=== PATIENT | female | born 1955 | race Caucasian/White ===

== ENCOUNTER → 2020-07-17 11:54 | Outpatient (CLI) | payer OTHER, BC, SELFPAY ==
--- NOTE | ~2020-07-17 | MM_ITS ---
EXAMINATION: MM screening [facility] BI [facility] HISTORY: Screening mammogram TECHNIQUE: Craniocaudal and mediolateral oblique 3-D tomosynthesis images were obtained and synthetic 2-D images were generated. CAD analysis was submitted and interpreted. COMPARISON: 03/31/2019, 11/03/2016, 11/20/2010 BREAST PARENCHYMAL COMPOSITION: There are scattered areas of fibroglandular density. FINDINGS: There is no evidence of suspicious mass, calcification, or architectural distortion to sugg est malignancy in either breast. There has been no suspicious interval change. IMPRESSION: 1. No mammographic evidence of malignancy. 2. Recommend routine screening mammography in one year. BI-RADS Category 1: Negative Reviewed, dictated and finalized at location A. 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
== END ==
PROVIDERS: PCP Family Medicine; Visit Provider Family Medicine
DX: Z12.31 Encounter for screening mammogram for malignant neoplasm of breast (principal)
CPT/HCPCS: 77063; 77067

== ENCOUNTER → 2021-12-17 12:04 | Outpatient (CLI) | payer MEDICARE, OTHER, SELFPAY ==
--- NOTE | ~2021-12-17 | DEXA_ITS ---
Bone Density Report Name: EDWARDO BAY Age: 66 Sex: Female Ethnicity: White Date of : 1955 Indication: osteopenia; prior fracture; postmenopausal Referring Provider: Davy Walters Study: Bone densitometry was performed. Exam Date: December 17, 2021 Accession number: [id number] Bone Density: Region BMD T-score Z-score Classification AP Spine (L1-L4) 0.913 -1.2 0.6 Osteopenia Femoral Neck (Left) 0.676 -1.6 0.0 Osteopenia Total Hip (Left) 0.812 -1.1 0.2 Osteopenia Femoral Neck (Right) 0.685 -1.5 0.1 Osteopenia Total Hip (Right) 0.771 -1.4 -0.1 Osteopenia Total Hip Mean 0.792 -1.3 0.1 Osteopenia World Health Organization criteria for BMD impression classify patients as: Normal (T-score at or above -1.0), Osteopenia (T-score between -1.0 and -2.5), or Osteoporosis (T-score at or below -2.5). 10-year Fracture Risk(1): Major Osteoporotic Fracture 14% Hip Fracture 1.6% Reported Risk Factors: [place] (), Neck BMD=0.676, BMI=31.0, previous fracture (1) FRAX(R) Version 3.08. Fracture probability calculated for an untreated patient. Fracture probability may be lower if the patient has received treatment. Previous Exams: Region Exam Age BMD T-score BMD Change BMD Change Date g/cm2 vs Baseline vs Previous AP Spine(L1-L4) 12/17/2021 66 0.913 -1.2 -0.031 -0.026 03/31/2019 63 0.939 -1.0 -0.005 -0.005 11/03/2016 61 0.944 -0.9 Total Hip(Left) 12/17/2021 66 0.812 -1.1 -0.021 -0.024 03/31/2019 63 0.836 -0.9 0.003 0.003 11/03/2016 61 0.833 -0.9 Total Hip(Right) 12/17/2021 66 0.771 -1.4 -0.027 -0.001 03/31/2019 63 0.772 -1.4 -0.025 -0.025 11/03/2016 61 0.798 -1.2 *Denotes significance at 95% confidence level, LSC for AP Spine = 0.022 g/cm2, LSC for Total Hip = 0.027 g/cm2 Clinical Information Provided by Patient: Has had a low trauma fracture Has used the following medications: Vitamin D, Calcium, MTV Patient maximum height was 65.0 Menopause Age: 52 Drinks caffeinated beverages Onset of menses at age 12 Number of children 3 Impression: The patient has low bone mass, based on the Left Femoral Neck T-score. The patient has an estimated ten-year risk of hip fracture of 1.6% and an estimated ten-year risk of major fracture of 14%, based on the WHO FRAX algorithm. The patient has risk
--- NOTE | ~2021-12-17 | MM_ITS ---
EXAMINATION: MM screening [facility] HISTORY: Screening mammogram TECHNIQUE: Craniocaudal and mediolateral oblique 3-D tomosynthesis images were obtained and synthetic 2-D images were generated. Bilateral rotated lateral CC views. CAD analysis was submitted and interp reted. COMPARISON: 07/13/2020, 03/31/2019, 11/03/2016 bilateral screening mammogram examinations BREAST PARENCHYMAL COMPOSITION: There are scattered areas of fibroglandular density. FINDINGS: There is no evidence of suspicious mass, calcification, or architectural distortion to sugg est malignancy in either breast. There has been no suspicious interval change. IMPRESSION: 1. No mammographic evidence of malignancy. 2. Recommend routine screening mammography in one year. BI-RADS Category 1: Negative Reviewed, dictated and finalized at location A.
== END ==
PROVIDERS: PCP Family Medicine; Visit Provider Family Medicine
DX: Z12.31 Encounter for screening mammogram for malignant neoplasm of breast (principal); Z78.0 Asymptomatic menopausal state; M85.88 Other specified disorders of bone density and structure, other site; M85.852 Other specified disorders of bone density and structure, left thigh; M85.851 Other specified disorders of bone density and structure, right thigh
CPT/HCPCS: 77063; 77067; 77080

== ENCOUNTER 2024-03-22 11:29 | Outpatient (CLI) | payer MEDICARE, SELFPAY ==
--- NOTE | ~2024-03-22 | MM_ITS ---
EXAMINATION: MM screening [facility] BI w isabelle HISTORY: Screening mammogram TECHNIQUE: Craniocaudal and mediolateral oblique 3-D tomosynthesis images were obtained and synthetic 2-D images were generated. CAD analysis was submitted and interpreted. COMPARISON: 12/17/2021, 07/17/2020, 03/31/2019 BREAST PARENCHYMAL COMPOSITION:Not Dense. There are scattered areas of fibroglandular density. FINDINGS: No suspicious mass, calcification, or architectural distortion are identified in either zeus ast to suggest malignancy. There has been no suspicious interval change. IMPRESSION: No mammographic evidence of malignancy. Recommend routine screening mammography in one year. BI-RADS Category 1: Negative Reviewed, dictated and finalized at location .
== END 2024-03-22 11:30 | disposition home or self-care (01) ==
LOC: MICIMG 11:30
PROVIDERS: PCP Family Medicine; Visit Provider Family Medicine
DX: Z12.31 Encounter for screening mammogram for malignant neoplasm of breast (principal)
CPT/HCPCS: 77063; 77067

== ENCOUNTER 2024-06-07 14:37 | Emergency (ER) | payer MEDICARE, SELFPAY ==
--- NOTE | ~2024-06-07 | XR_ITS ---
EXAMINATION: XR hand LT min 3V, XR wrist LT min 3V DATE: 06/07/2024 15:02 INDICATION: Distal left radial pain post fall TECHNIQUE: 1. Posteroanterior, ulnar deviation, oblique, and lateral views of the left wrist were obtained. 2. Dorsal palmar, oblique and lateral views of the left hand were obtained. COMPARISON: None. FINDINGS: Diffuse osteopenia. Dorsally impacted comminuted intra-articular fracture of the distal left radius w ith 22 degree dorsal tilt of the distal articular surface. There is an additional nondisplaced fractu re extending across the base of the ulnar styloid process. No fracture in the left hand. Advanced ost eoarthritis at the first carpometacarpal joint. Additional mild polyarticular osteoarthritis at the l eft wrist, midcarpal, triscaphe and multiple interphalangeal joints. IMPRESSION: 1. Comminuted dorsally impacted intra-articular fracture of the distal left radius. 2. Nondisplaced ulnar styloid avulsion fracture. 2. Polyarticular osteoarthritis at the left hand and wrist, advanced at the first carpometacarpal bettie nt and otherwise mild. Reviewed, dictated and finalized at location B. [facility] IMPRESSION: 1. Comminuted dorsally impacted intra-articular fracture of the distal left rad ius. 2. Nondisplaced ulnar styloid avulsion fracture. 2. Polyarticular osteoarthritis at the left hand and wrist, advanced at the [facility] st carpometacarpal joint and otherwise mild.
--- NOTE | 2024-06-07 14:49 | ED.UPPEXIN ---
HPI - Extremity Injury (Upper) General Chief Complaint: Extremity Injury, Upper <Naomi Marsh PA-C - Last Filed: 06/07/24 14:51> Stated Complaint: left wrist injury <Naomi Marsh PA-C - Last Filed: 06/07/24 14:51> Time Seen by Provider: 06/07/24 14:56 <Naomi Masrh PA-C - Last Filed: 06/07/24 14:51> Focused HPI: 68-year-old female presents emergency department for pain to the left wrist after a mechanical injury. Patient states she tripped over a scooter on the ground and landed on her left side with her arm twisted under her. She did not hit her head or lose consciousness. She denies other injuries including neck pain, back pain, lower extremity injury. She is reporting pain and swelling to the left wrist. Reports a remote history of fracture to her left wrist as well. She took Aleve earlier this morning for an unrelated reason, otherwise has not taken anything for pain. GENERAL: Well-appearing, well-nourished, and in no acute distress. HEAD: Normocephalic, atraumatic. CHEST: Clear to auscultation. ?No respiratory distress. EXT: Tenderness and edema to the distal radius, no significant tenderness to the distal ulna, limited range of motion secondary to pain, no tenderness remainder of extremity. Cap refills into. Sensation intact. Radial, median and ulnar nerves are intact. Radial pulse 2 +. HEART: Regular rate and rhythm.? NEURO: ?Alert and oriented x3. Patient screened in triage and initial orders placed.? ?Additional care and disposition to be based upon?diagnostic testing and treatment. <Naomi Marsh PA-C - Last Filed: 06/07/24 14:51> Source: patient and family <Dillan Gallagher MD - Last Filed: 06/07/24 16:00> Mode of arrival: ambulatory <Dillan Gallagher MD - Last Filed: 06/07/24 16:00> Limitations: no limitations <Dillan Gallagher MD - Last Filed: 06/07/24 16:00> History of Present Illness HPI narrative: 68-year-old with a history of hypertension, diabetes here with the complaints of left wrist pain patient states that she tripped on her daughter's scooter and fell on outstretched hand. She denies any head and neck injuries. <Dillan Gallagher MD - Last Filed: 06/07/24 16:00> complaint: injury to: left <Dillan Gallagher MD - Last Filed: 06/07/24 16:00> Other Extremity Injury: Left: wrist <Dillan Gallagher MD - Last Filed: 06/07/24 16:00> Other injuries: none <Dillan Gallagher MD - Last Filed: 06/07/24 16:00> Handedness: right <Dillan Gallagher MD - Last Filed: 06/07/24 16:00> Place: home <Dillan Gallagher MD - Last Filed: 06/07/24 16:00> Severity: moderate <Dillan Gallagher MD - Last Filed: 06/07/24 16:00> Relieving factors: none <Dillan Gallagher MD - Last Filed: 06/07/24 16:00> Exacerbating factors: movement of extremity <Dilaln Gallagher MD - Last Filed: 06/07/24 16:00> Context: fall <Dillan Gallagher MD - Last Filed: 06/07/24 16:00> Associated symptoms: denies other symptoms <Dilaln Gallagher MD - Last Filed: 06/07/24 16:00> Treatments prior to arrival: cold therapy <Dillan Gallagher MD - Last Filed: 06/07/24 16:00> Related Data Home Medications: Home Medications ?Medication ?Instructions ?Recorded ?Confirmed ?Last Taken ?Type aspirin 81 mg tablet,delayed 81 mg PO DAILY 06/06/19 04/03/24 Unknown History release cetirizine 10 mg tablet (Zyrtec) 10 mg PO DAILY 06/06/19 04/03/24 Unknown History cholecalciferol (vitamin D3) 25 1,000 unit PO DAILY 06/06/19 04/03/24 Unknown History mcg (1,000 unit) tablet multivitamin-ferrous 1 tablet PO DAILY 06/06/19 04/03/24 Unknown History fumarate-folic acid 18 mg-400 mcg tablet (Centrum Complete) <Naomi Marsh PA-C - Last Filed: 06/07/24 14:51> Allergies/Adverse Reactions: Allergies Allergy/AdvReac Type Severity Reaction Status Date / Time No Known Allergies Allergy Verified 06/07/24 14:38 <Naomi Marsh PA-C - Last Filed: 06/07/24 14:51> Review of Systems Review of Systems: All systems reviewed & are unremarkable except as noted in HPI and below <Dillan Gallagher MD - Last Filed: 06/07/24 16:00> Constitutional: Constitutional: Reports no additional constitutional complaints <Dillan Gallagher MD - Last Filed: 06/07/24 16:00> Eyes: Eyes: Reports no additional eye complaints <Dillan Gallagher MD - Last Filed: 06/07/24 16:00> ENT: Reports system reviewed and no additional complaints, except as documented <Dillan Gallagher MD - Last Filed: 06/07/24 16:00> Cardiovascular: Cardiovascular: Reports no additional cardiovascular complaints <Dillan Gallagher MD - Last Filed: 06/07/24 16:00> Respiratory: Respiratory: Reports no additional respiratory complaints <Dillan Gallagher MD - Last Filed: 06/07/24 16:00> Gastrointestinal: Gastrointestinal: Reports no additional gastrointestinal complaints <Dillan Gallagher MD - Last Filed: 06/07/24 16:00> Musculoskeletal: Musculoskeletal: Reports as per HPI <Dillan Gallagher MD - Last Filed: 06/07/24 16:00> Neurologic: Reports system reviewed and no additional complaints, except as documented <Dillan Gallagher MD - Last Filed: 06/07/24 16:00> Endocrine: Endocrine: Reports no additional endocrine complaints <Dillan Gallagher MD - Last Filed: 06/07/24 16:00> PMFSH Surgical History Surgical History: Surgical History Hx of parathyroidectomy <Naomi Marsh PA-C - Last Filed: 06/07/24 14:51> Family History Family History: Family History Mother Family history of osteoarthritis <Naomi Marsh PA-C - Last Filed: 06/07/24 14:51> Social History Social History: Social History Smoking status: Never smoker Second hand tobacco smoke exposure: No Alcohol intake: never Substance use: never Substance use type: does not use Living arrangements: with family Occupation/Education: retired Gender identity (if verbalized by the patient): Female Sexual Orientation (if Verbalized by the Patient): Straight or Heterosexual <Naomi Marsh PA-C - Last Filed: 06/07/24 14:51> Exam Narrative: GENERAL: Well-appearing, well-nourished, and in no acute distress. HEAD: Normocephalic, atraumatic. EYES: PERRLA and EOMI. ENT: Nares clear, no rhinorrhea or epistaxis. Mucous membranes moist. NECK: Supple. CHEST: Clear to auscultation. No respiratory distress. HEART: Regular rate and rhythm. No murmur heard. Normal peripheral pulses. EXTREMITIES: Normal range of motion. Examination of left wrist shows mild soft tissue swelling good radial pulse. SKIN: Warm, dry, no rash. NEURO: No focal deficits. Alert and oriented x3. PSYCH: Normal mood and affect. <Dillan Gallagher MD - Last Filed: 06/07/24 16:00> Course Course Emergency Course: Notified patient about an x-ray findings. Recommended her to keep her arm elevated use sling all the time, advised to follow-up with orthopedic doctor. Take pain medication as prescribed the <Dillan Gallagher MD - Last Filed: 06/07/24 16:00> Vital Signs Vital signs: Vital Signs Temperature 36.6 C 06/07/24 14:51 Pulse Rate 95 06/07/24 14:51 Respiratory Rate 16 06/07/24 14:51 Blood Pressure 159/64 H 06/07/24 14:51 Pulse Oximetry 100 06/07/24 14:51 Oxygen Delivery Room Air 06/07/24 14:51 Temperature 36.6 C 06/07/24 14:51 Pulse Rate 95 06/07/24 14:51 Respiratory Rate 16 06/07/24 14:51 Blood Pressure 159/64 H 06/07/24 14:51 Pulse Oximetry 100 06/07/24 14:51 Oxygen Delivery Room Air 06/07/24 14:51 <Naomi Marsh PA-C - Last Filed: 06/07/24 14:51> Vital Signs Temperature 36.6 C 06/07/24 14:51 Pulse Rate 95 06/07/24 14:51 Respiratory Rate 16 06/07/24 14:51 Blood Pressure 159/64 H 06/07/24 14:51 Pulse Oximetry 100 06/07/24 14:51 Oxygen Delivery Room Air 06/07/24 14:51 Temperature 36.6 C 06/07/24 14:51 Pulse Rate 95 06/07/24 14:51 Respiratory Rate 16 06/07/24 14:51 Blood Pressure 159/64 H 06/07/24 14:51 Pulse Oximetry 100 06/07/24 14:51 Oxygen Delivery Room Air 06/07/24 14:51 <Dillan Gallagher MD - Last Filed: 06/07/24 16:00> MDM - Extremity Injury (Upper) Differential Diagnosis Differential diagnosis: Likely sprain and strain of wrist and fracture of wrist <Dillan Gallagher MD - Last Filed: 06/07/24 16:00> Imaging Data Radiologist's impression: ITS Impressions Hand X-Ray 06/07/24 15:03 IMPRESSION: 1. Comminuted dorsally impacted intra-articular fracture of the distal left radius. 2. Nondisplaced ulnar styloid avulsion fracture. 2. Polyarticular osteoarthritis at the left hand and wrist, advanced at the first carpometacarpal joint and otherwise mild. Wrist X-Ray 06/07/24 15:03 IMPRESSION: 1. Comminuted dorsally impacted intra-articular fracture of the distal left radius. 2. Nondisplaced ulnar styloid avulsion fracture. 2. Polyarticular osteoarthritis at the left hand and wrist, advanced at the first carpometacarpal joint and otherwise mild. <Dillan Gallagher MD - Last Filed: 06/07/24 16:00> Discharge Plan Discharge Clinical Impression: Left wrist fracture Qualifiers: Encounter type: initial encounter Fracture type: closed Qualified Code(s): S62.102A - Fracture of unspecified carpal bone, left wrist, initial encounter for closed fracture <Naomi Marsh PA-C - Last Filed: 06/07/24 14:51> Patient Disposition: Home, Self-Care <ATIF Frankel Last Filed: 06/07/24 14:51> Condition: Stable <ATIF Frankel Last Filed: 06/07/24 14:51> Instructions: Wrist Fracture in Adults (ED) <ATIF Frankel Last Filed: 06/07/24 14:51> Additional Instructions: Take pain medication as prescribed. Follow-up with orthopedic doctor number given below. Keep the arm elevated <ATIF Frankel Last Filed: 06/07/24 14:51> Patient Language: Barbadian <ATIF Frankel Last Filed: 06/07/24 14:51> Prescriptions: New hydrocodone-acetaminophen 5-325 mg tablet 1 tablet PO Q6H PRN (Reason: pain) Qty: 20 0RF No Action aspirin 81 mg tablet,delayed release (DR/EC) 81 mg PO DAILY Centrum Complete 18-400 mg-mcg tablet 1 tablet PO DAILY cetirizine [Zyrtec] 10 mg tablet 10 mg PO DAILY cholecalciferol (vitamin D3) 25 mcg (1,000 unit) tablet 1,000 unit PO DAILY scopolamine base [Transderm-Scop] 1 mg over 3 days patch 3 day 1 patch transdermal Q3D PRN (Reason: motion sickness) Qty: 4 0RF (DME) lancets [OneTouch Delica Lancets] 33 gauge misc See Rx Instructions .ROUTE .MEDSUPPLY Qty: 100 3RF Rx Instructions: test daily metformin 500 mg tablet extended release 24 hr See Rx Instructions .ROUTE .COMPLEX Qty: 360 2RF Dose Instruction: TAKE 4 TABLETS EVERY EVENING Rx Instructions: TAKE 4 TABLETS EVERY EVENING amlodipine 5 mg tablet See Rx Instructions .ROUTE .COMPLEX Qty: 90 2RF Dose Instruction: TAKE 1 TABLET DAILY Rx Instructions: TAKE 1 TABLET DAILY hydrochlorothiazide 25 mg tablet See Rx Instructions .ROUTE .COMPLEX Qty: 90 2RF Dose Instruction: TAKE 1 TABLET DAILY Rx Instructions: TAKE 1 TABLET DAILY metoprolol succinate 25 mg tablet extended release 24 hr See Rx Instructions .ROUTE .COMPLEX Qty: 90 2RF Dose Instruction: TAKE 1 TABLET DAILY Rx Instructions: TAKE 1 TABLET DAILY simvastatin 20 mg tablet See Rx Instructions .ROUTE .COMPLEX Qty: 90 2RF Dose Instruction: TAKE 1 TABLET DAILY Rx Instructions: TAKE 1 TABLET DAILY (DME) OneTouch Ultra Test Strip See Rx Instructions .Route Qty: 100 3RF Rx Instructions: test qam fasting ramipril 10 mg capsule See Rx Instructions .ROUTE .COMPLEX Qty: 90 2RF Dose Instruction: TAKE 1 CAPSULE DAILY Rx Instructions: TAKE 1 CAPSULE DAILY <Naomi Marsh PA-C - Last Filed: 06/07/24 14:51> Follow-up/Referrals: Davy Walters MD [Primary Care Provider] - Tyrell Quiros MD [Physician] - <Naomi Marsh PA-C - Last Filed: 06/07/24 14:51> Time of Disposition: 15:59 <Naomi Marsh PA-C - Last Filed: 06/07/24 14:51> 15:59 <Dillan Gallagher MD - Last Filed: 06/07/24 16:00>
[2024-06-07 14:51] VITALS: BP 159/64; PULSE 95; RESP 16; TEMP 36.6; O2SAT 100
[2024-06-07] MEDS: HYDROcodone/acetaminophen (*CRX) 5-325 MG TABLET 1 TAB PO (15:41)
== END 2024-06-07 16:20 | disposition home or self-care (01) ==
PROVIDERS: Emergency Provider Family Medicine; PCP Family Medicine
DX: S52.572A Other intraarticular fracture of lower end of left radius, initial encounter for closed fracture (principal); S52.615A Nondisplaced fracture of left ulna styloid process, initial encounter for closed fracture; W01.0XXA Fall on same level from slipping, tripping and stumbling without subsequent striking against object, initial encounter
CPT/HCPCS: 29125; 73110; 73130; 99284; A4565; A9270

== ENCOUNTER 2024-09-15 14:15 | Outpatient (CLI) | payer MEDICARE, SELFPAY ==
--- NOTE | ~2024-09-15 | DEXA_ITS ---
Bone Density Report Name: EDWARDO BAY Age: 69 Sex: Female Ethnicity: White Date of : 1955 Indication: postmenopausal; screening for osteoporosis; height loss; Referring Provider: PRATIK MIDDLETON Study: Bone densitometry was performed. Exam Date: September 15, 2024 Accession number: [id number] Bone Density: Region BMD T-score Z-score Classification AP Spine(L1-L4) 0.899 -1.3 0.7 Osteopenia Femoral Neck (Left) 0.638 -1.9 -0.2 Osteopenia Total Hip (Left) 0.820 -1.0 0.4 Normal Femoral Neck (Right) 0.647 -1.8 -0.1 Osteopenia Total Hip (Right) 0.767 -1.4 0.0 Osteopenia Total Hip Mean 0.794 -1.2 0.2 Osteopenia World Health Organization criteria for BMD impression classify patients as: Normal (T-score at or above -1.0), Osteopenia (T-score between -1.0 and -2.5), or Osteoporosis (T-score at or below -2.5). 10-year Fracture Risk(1): Major Osteoporotic Fracture 11% Hip Fracture 1.7% Reported Risk Factors: [place] (), Neck BMD=0.638, BMI=29.0 (1) FRAX(R) Version 3.08. Fracture probability calculated for an untreated patient. Fracture probability may be lower if the patient has received treatment. Clinical Information Provided by Patient: Has used the following medications: Vitamin D, Calcium Patient maximum height was 66 Menopause Age: 52 No regular weight bearing exercise Drinks caffeinated beverages Onset of menses at age 12 Number of children 3 Impression: The patient has low bone mass, based on the Left Femoral Neck T-score. The patient has an estimated ten-year risk of hip fracture of 1.7% and an estimated ten-year risk of major fracture of 11%, based on the WHO FRAX algorithm. Discussion: BONE DENSITY IS LOW AT ONE OR MORE SKELETAL SITES. This patient's lowest T-score is low at one or more skeletal sites. It meets the World Health Organization's (WHO) criteria for ?low bone mass? (T-score between -1.0 and -2.5). The patient's 10-year risk of fracture as calculated by FRAX is less than the threshold where pharmacological therapy is recommended by the National Osteoporosis Foundation (NOF). However, all treatment decisions require clinical judgment and consideration of individual patient factors, including patient preferences, comorbidities, previous drug use, risk factors not captured in the FRAX model (e.g., frailty, falls, vitamin D deficiency, increased bone turnover, interval significant decline in bone density) and possible under or overestimation of fracture risk by FRAX. The patient should follow a healthful lifestyle (good nutrition with adequate calcium and vitamin D, and appropriate weight-bearing exercise). Follow-Up: Consider repeating this study in 2 to 3 years to reassess this patient's status, or sooner if there is some new clinical indication. Reported by: OLGA LIDIA on 09/15/2024 2:55:00 PM. Reviewed, dictated and finalized at location A. ALEJANDRA
--- OUTSIDE RECORDS SUMMARY | 2024-09-15 14:18 | XMS_ITS | Encounter Summary ---
Author Organization [facility] Healthcare Address [address] [place] [address] Care Team Providers Care Slubber Tender Name Role Phone Davy Walters MD Primary Care Provider Reason for Visit * Reason Onset Date Comments OT order 09/14/2024 Encounter Details Date Type Department Care Team (Late st Contact Info) Description 09/14/2024 Telephone [facility] Hand Surgery [address] [place] [id number] Yuval Guerrero MD [address] [place] [phone] OT order Social History Tobacco Use Types Packs/Day Years Used Date Smoking Tobacco: Never AUDIT-C Answer Date Recorded Q1: How often do you have a drink containing alc ohol? Never 07/04/2024 Average Number of Drinks Not on file 025 Frequency of Binge Drinking Not on file 06/24 Personal Safety Answer Date Recorded Have you ever been in or are you currently in a harmful physical or emotional relationship or is someone making you feel afraid or unsafe? 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 Gender Identity Not on file Sexual Orientation Not on file documented as of this encounter Miscellaneous Notes * Telephone Encounter - Patricia Smith - 09/14/2024 11:38 AM CDT TLB Pt is req abn updated order to OT not PT for L wrist Please fax to [facility] documented in this encounter Plan of Treatment Not on file documented as of this encounter Visit Diagnoses Not on filedocumented in this encounter Care Teams Slubber Tender Relationship Specialty Start Date End Date Davy Walters MD [address] [facility] [address] [place] [address] PCP - General Family Medicine 06/22/24 documented as of this encounter
--- OUTSIDE RECORDS SUMMARY | 2024-09-15 14:18 | XMS_ITS | Continuity of Care Document ---
Author Organization [facility] Address [address] [place] [address] Phone Care Team Providers Care Waredresser Name Role Phone Vidal OD, Chi Unavailable Unavailable Advance Directives Directive Yes / No Effective Date File Name No Information Encounters Encounter Description Practice Location Reason(s) For Visit Diagnoses Date Provider Providers Copied on Encounter [facility], [address], [place], [place], [id number], [place] tel:[phone] [place] No Information 2[address] Vidal OD Chi. [address] , [address], [place], [address], [place]. tel:[phone] Family History Family Member Type Diagnosis Age At Onset No Information Payers Payer name Insurance type Covered republican ID Authoriza tion(s) No Information Social History Type Description Quantity Date Captured Comments Sex Female Smoking Status No Information Chief Complaint And Reason For Visit No Information Reason For Referral Reason For Referral No Information History Of Present Illness Encounter Date Complaint History Of Prese nt Illness No Information Functional Status Date Functional Assessmen t No Information Instructions Date Instruction Additional Infor mation No Information Assessments Type Assessment Date No Information Patient Care Teams Name Effective Dates (start - stop) Status Members No Information
--- OUTSIDE RECORDS SUMMARY | 2024-09-15 14:18 | XMS_ITS | Clinical Summary ---
Author Organization [facility] Address [address] [place] [address] Care Team Providers Care Collections Technician Name Role Phone Davy Walters MD Primary Care Provider Allergies No known active allergies Medications amLODIPine (NORVASC) 5 mg tablet Take 1 tablet (5 mg total) by mouth nightly 05/18/2024 Active OneTouch Ultra Test strip USE TO TEST IN THE MORNING DURING FASTING 04/06/2024 Active hydroCHLOROthia zide (HYDRODIURIL) 25 mg tablet Take 1 tablet (25 mg total) by mouth daily 05/18/2024 Active HYDROcodone-alhaji taminophen (NORCO) 5-325 mg per tablet Take by mouth every 6 (six) hours as needed 06/07/2024 Active metFORMIN XR (GLUCOPHAGE XR) 500 mg 24 hr tablet TAKE 4 TABLETS BY MOUTH DAILY IN THE EVENING 04/07/2024 Active metoprolol XL (TOPROL-XL) 25 mg extended release tablet Take 1 tablet (25 mg total) by mouth nightly 05/18/2024 Active ramipriL (ALTACE) 10 mg capsule Take 1 capsule (10 mg total) by mouth daily 05/19/2024 Active simvastatin (ZOCOR) 20 mg tablet Take 1 tablet (20 mg total) by mouth nightly 05/18/2024 Active aspirin 81 mg enteric coated tablet Take 1 tablet (81 mg total) by mouth daily Active cetirizine (ZyrTEC) 10 mg chewable tablet Take 1 tablet (10 mg total) by mouth daily Active naproxen sodium 220 mg capsule Take by mouth 2 (two) times a day as needed Active multivitamin-mi nerals-lutein tablet Take by mouth daily Active calcium carbonate-vitam in D3 2,500 mg (1,000 mg elemental)-800 unit tablet Take 4 tablets by mouth daily Active cinnamon bark 500 mg capsule Take 1 capsule (500 mg total) by mouth daily Active traMADoL (ULTRAM) 50 mg tablet Take 1 tablet (50 mg total) by mouth every 6 (six) hours as needed for pain 15 tablet 07/04/2024 Active ascorbic acid (ascorbic acid with rosario hips) 500 mg tablet,chewable Take 1 tablet/chew tab (500 mg total) by mouth 2 (two) times a day 60 tablet/chew tab 07/04/2024 Active Active Problems Problem Noted Date Diagnosed Date Closed fracture of left distal radius 06/27/2024 Closed fracture of distal end of ulna (alone) Fracture, Colles, left, closed 06/26/2024 Encounters Date Type Department Care Team Description 09/15/2024 Orders Only [facility] Hand Surgery [address] [place] [phone] Yuval Guerrero MD Closed Colles' fracture of left radius with delayed healing, subsequent encounter (Primary Dx) 09/14/2024 Telephone [facility] Hand Surgery [address] [place] [phone] Yuval Guerrero MD OT order 09/13/2024 8:45 AM CDT Office Visit [facility] Hand Surgery [address] [place] [phone] Yuval Guerrero MD Closed Colles' fracture of left radius with delayed healing, subsequent encounter (Primary Dx) 09/13/2024 8:35 AM CDT Ancillary Procedure [facility] [address] [place] [phone] Arrived 08/07/2024 11:30 AM CDT Ancillary Procedure [facility] Surgery [address] [place] [phone] 08/07/2024 11:15 AM CDT Office Visit [facility] Hand Surgery [address] [place] [phone] Yuval Guerrero MD Closed Colles' fracture of left radius with delayed healing, subsequent encounter (Primary Dx) 07/17/2024 8:30 AM ENVIRONMENTAL SERVICES FLOOR TECH Office Visit [facility] Hand Surgery [address] [place] [phone] Yuval Guerrero MD Closed Colles' fracture of left radius with delayed healing, subsequent encounter (Primary Dx) 07/17/2024 8:00 AM ENVIRONMENTAL SERVICES FLOOR TECH Ancillary Procedure [facility] Hand Surgery [address] [place] [phone] 07/07/2024 9:15 AM ENVIRONMENTAL SERVICES FLOOR TECH Office Visit [facility] Hand Surgery [facility] [phone] Rozina Hauser NP Closed Colles' fracture of left radius with delayed healing, subsequent encounter (Primary Dx) 07/04/2024 11:53 AM ENVIRONMENTAL SERVICES FLOOR TECH Anesthesia Event [facility] [place] [address] [place] [phone] Daren Beasley MD Lee, Walter, MD 07/04/2024 11:30 AM ENVIRONMENTAL SERVICES FLOOR TECH - 07/04/2024 1:00 PM ENVIRONMENTAL SERVICES FLOOR TECH Surgery [facility] [place] [address] [place] [phone] Yuval Guerrero MD LEFT WRIST OPEN REDUCTION INTERNAL FIXATION 07/04/2024 9:30 AM ENVIRONMENTAL SERVICES FLOOR TECH Ancillary Procedure [facility] [place] [address] [place] [phone] 07/04/2024 8:49 AM ENVIRONMENTAL SERVICES FLOOR TECH - 07/04/2024 3:17 PM ENVIRONMENTAL SERVICES FLOOR TECH Hospital Encounter [facility] [place] [address] [place] [phone] Yuval Guerrero MD Closed Colles' fracture of left radius with delayed healing, subsequent encounter [S52.532G] (Primary Dx); Closed fracture of distal end of ulna (alone) [S52.609A] Discharge Disposition: Discharge to home or self care 06/28/2024 1:00 PM ENVIRONMENTAL SERVICES FLOOR TECH Pre-Admission Testing [facility] Pre Admit Testing [address] [place] [address] Pre-op testing (Primary Dx); 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) 06/26/2024 8:15 AM ENVIRONMENTAL SERVICES FLOOR TECH Office Visit [facility] [address] [place] [phone] Yuval Guerrero MD Closed fracture of left wrist, initial encounter (Primary Dx); Closed comminuted intra-articular fracture of distal end of femur, unspecified laterality, initial encounter (HCC); Other closed intra-articular fracture of distal end of left radius, initial encounter; Closed fracture of distal end of ulna (alone) 06/26/2024 7:55 AM ENVIRONMENTAL SERVICES FLOOR TECH - 06/26/2024 11:59 PM ENVIRONMENTAL SERVICES FLOOR TECH Hospital Encounter [facility] Di[facility] [place] [address] Closed fracture of left wrist, initial encounter Discharge Disposition: Discharge to home or self care from Last 3 Months Surgical History Surgery Date Site/Laterality Comments PARATHYROIDECTOMY 05/24/2017 - 05/23/2018 ARTHROSCOPIC SURGERY left knee 2012., right knee 2011 SECTION x 3 TONSILLECTOMY 05/24/1960 - 05/23/1961 Medical History Medical History Date Comments Type 2 diabetes mellitus (HCC) 2017 Hypertension Arthritis PONV (postoperative nausea and vomiting) Motion sickness Social History Tobacco Use Types Packs/Day Years Used Date Smoking Tobacco: Never Tobacco Cessation:Counseling Given: Not Answered AUDIT-C Answer Date Recorded Q1: How often [...] on file Legal Sex Female 6:15 PM ENVIRONMENTAL SERVICES FLOOR TECH Gender Identity Not on file Sexual Orientation Not on file Obstetrics History Last Filed Vital Signs Vital Sign Reading Time Taken Comments Blood Pressure 137/71 07/04/2024 2:30 PM ENVIRONMENTAL SERVICES FLOOR TECH Pulse 88 07/04/2024 2:30 PM ENVIRONMENTAL SERVICES FLOOR TECH Temperature 36.5 C (97.7 F) 07/04/2024 1:35 PM ENVIRONMENTAL SERVICES FLOOR TECH Respiratory Rate 18 07/04/2024 1:50 PM ENVIRONMENTAL SERVICES FLOOR TECH Oxygen Saturation 92% 07/04/2024 2:30 PM ENVIRONMENTAL SERVICES FLOOR TECH Inhaled Oxygen Concentration - - Weight 77.1 kg (170 lb) 07/04/2024 8:57 AM ENVIRONMENTAL SERVICES FLOOR TECH Height 162.6 cm (5' 4 ) 07/04/2024 8:57 AM ENVIRONMENTAL SERVICES FLOOR TECH Body Mass Index 29.18 07/04/2024 8:57 AM ENVIRONMENTAL SERVICES FLOOR TECH Plan of Treatment Health Maintenance Due Date Last Done Comments Albumin Creatinine Ratio, Urine 1955 Breast Cancer Screening-Mammogram 1955 Colon Cancer Screening-Colonoscopy 1955 Depression Screening 1955 Hepatitis C Screening 1955 Osteoporosis Screening-Bone Density Scan 1955 Dilated Eye Exam 1955 Foot Exam 1955 Lipid Panel 1955 DTaP/Tdap/Td Vaccine (1 - Tdap) 08/27/1966 Hepatitis B Screening 08/27/1973 Pneumococcal vaccine 65+ (1 of 2 - PCV) 08/27/1974 Zoster Vaccine (1 of 2) 08/27/2005 Well Visit 65+ 08/27/2020 Covid-19 Vaccine (2 - season) 2024 Hemoglobin A1C 12/26/2024 06/28/2024 Influenza Vaccine (Season Ended) 2025 eGFR 06/28/2025 06/28/2024 Fall Risk Assessment 07/04/2025 07/04/2024 Medical Devices Implanted Type Area Public Defender Device Identifier Shelf Expiration Date Model / Serial / Lot [employer] Plate Bone Narrow 4 Hole Left Ti [id number] - [id number] Implanted:Qty: 1 on 07/04/2024 by Yuval Guerrero MD at [facility] Plate Left: Wrist [employer] AR-[id number] -04 / / [employer] Low Profile Screws 3.5mm 14mm Self Drill Solid Midfoot Cortical T Ar-8935-14 - [id number] Implanted:Qty: 1 on 07/04/2024 by Yuval Guerrero MD at [facility] Screw Left: Wrist [employer] AR-8935-14 / / [employer] Screw Kreulock Compression Titanium 3.5x14mm [id number] - [id number] Implanted:Qty: 1 on 07/04/2024 by Yuval Guerrero MD at [facility] Screw Left: Wrist [employer] AR-8935CL- 12 / / [employer] Screw Kreulock Compression Titanium 3.5x14mm [id number] - [id number] Implanted:Qty: 1 on 07/04/2024 by Yuval Guerrero MD at [facility] Screw Left: Wrist [employer] AR-8935CL- 12 / / [employer] Screw Kreulock Compression Titanium 2.4x18mm [id number] - [id number] Implanted:Qty: 1 on 07/04/2024 by Yuval Guerrero MD at [facility] Left: Wrist [employer] AR-8724VCL -18 / / [employer] Screw Kreulock Compression Titanium 2.4x20mm [id number] - [id number] Implanted:Qty: 1 on 07/04/2024 by Yuval Guerrero MD at [facility] Left: Wrist [employer] AR-8724VCL -20 / / [employer] Screw Kreulock Compression Titanium 2.4x20mm [id number] - [id number] Implanted:Qty: 1 on 07/04/2024 by Yuval Guerrero MD at [facility] Left: Wrist [employer] AR-8724VCL -20 / / [employer] Low Profile Screws 2.4mm 24mm Self Drill Self Tap Cannulated Ar-8724-24 - [id number] Implanted:Qty: 1 on 07/04/2024 by Yuval Guerrero MD at [facility] Left: Wrist [employer] AR-8724-24 / / Procedures Procedure Name Priority Date/Time Associated Diagnosis Comments XR WRIST LEFT 3 OR MORE VIEWS Schedule Routine, Read Routine (OP Routine) 09/14/2024 6:34 AM CDT Closed Colles' fracture of left radius with delayed healing, subsequent encounter XR WRIST LEFT 3 OR MORE VIEWS Schedule Routine, Read Routine (OP Routine) 08/07/2024 1:09 PM CDT Closed Colles' fracture of left radius with delayed healing, subsequent encounter XR WRIST LEFT 3 OR MORE VIEWS Schedule Routine, Read Routine (OP Routine) 07/17/2024 9:25 AM ENVIRONMENTAL SERVICES FLOOR TECH Closed Colles' fracture of left radius with delayed healing, subsequent encounter CAST APPLICATION Routine 07/07/2024 10:4 6 AM ENVIRONMENTAL SERVICES FLOOR TECH Closed Colles' fracture of left radius with delayed healing, subsequent encounter POCT GLUCOSE DEVICE Routine 07/04/2024 1 :27 PM ENVIRONMENTAL SERVICES FLOOR TECH FL FLUOROSCOPY < 1 HOUR IP Routine 07/04/2024 12:43 PM ENVIRONMENTAL SERVICES FLOOR TECH DE AN PROCEDURE PLACEHOLDER Routine 07/04/2024 12:16 PM ENVIRONMENTAL SERVICES FLOOR TECH DE AN ELECTIVE ENDOTRACHEAL AIRWAY Routine 07/04/2024 12:16 PM ENVIRONMENTAL SERVICES FLOOR TECH OPEN REDUCTION INTERNAL FIXATION - WRIST 07/04/2024 11:58 AM ENVIRONMENTAL SERVICES FLOOR TECH Closed Colles' fracture of left radius, initial encounter Case Notes LT WRIST ORIF ~ TLB ADVISE WHAT COMPANY TO USE. 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) BASIC METABOLIC PANEL Routine 06/28/2024 1:12 PM ENVIRONMENTAL SERVICES FLOOR TECH Pre-op testing ECG 12-LEAD Routine 06/28/2024 1:02 PM ENVIRONMENTAL SERVICES FLOOR TECH Pre-op testing XR WRIST LEFT 3 OR MORE VIEWS Schedule Routine, Read Routine (OP Routine) 06/26/2024 8:01 AM ENVIRONMENTAL SERVICES FLOOR TECH Closed fracture of left wrist, initial encounter from Last 3 Months Results * XR Wrist Left 3 or More Views (09/14/2024 6:34 AM CDT) Anatomical Region Laterality Modality Upper Extremities, Wrist Left Compute d Radiography Narrative 09/14/2024 6:34 AM CDT X-rays on the mini C arm, AP lateral and oblique, showed postoperative changes across a well-healed distal radius fracture. Yuval Guerrero MD IMG XR PROCEDURES Final Result * XR Wrist Left 3 or More Views (08/07/2024 1:09 PM CDT) Anatomical Region Laterality Modality Upper Extremities, Wrist Left Compute d Radiography Narrative 08/07/2024 1:09 PM CDT AP lateral and oblique and elevated lateral view of the left wrist show postoperative changes across a well healing distal radius fracture and this is on the mini C-arm Yuval Guerrero MD IMG XR PROCEDURES Final Result * XR Wrist Left 3 or More Views (07/17/2024 9:25 AM ENVIRONMENTAL SERVICES FLOOR TECH) Anatomical Region Laterality Modality Upper Extremities, Wrist Left Compute d Radiography Narrative 07/17/2024 9:25 AM ENVIRONMENTAL SERVICES FLOOR TECH AP lateral and oblique x-rays of the left wrist on the mini C-arm show postop changes across a healing distal radius fracture Yuval Guerrero MD IMG XR PROCEDURES Final Result * Cast application (07/07/2024 10:46 AM ENVIRONMENTAL SERVICES FLOOR TECH) Narrative Rozina Hauser, KRISTA - 07/07/2024 10:46 AM ENVIRONMENTAL SERVICES FLOOR TECH Rozina Hauser NP 07/07/2024 10:50 AM Cast application Date/Time: 07/07/2024 10:46 AM Performed by: Rozina Hauser NP Authorized by: Rozina Hauser NP Consent given by: patient Injury Location details: left wrist Pre-procedure assessment Distal perfusion: normal Distal sensation: normal Range of motion: reduced Procedure Supplies used: elastic bandage and cotton padding Post-procedure assessment neurovascularly intact Range of motion: unchanged Patient tolerance: patient tolerated the procedure well with no immediate complications Rozina Hauser WIND ENERGY ENGINEER IN CLINIC/BEDSIDE ORDERABLES Fi nal Result * POCT glucose (07/04/2024 1:27 PM ENVIRONMENTAL SERVICES FLOOR TECH) [facility] Signature Glucose, POC 105 70 - 199 mg/dL Comment:Testing performed by : [facility], [address] [place] [address]., [id number] Glucose comment 1 Use This Result [facility] TAFOYA Comment:Testing performed by : [facility], [address] [place] [address]., [id number] Blood 07/04/2024 1:27 PM ENVIRONMENTAL SERVICES FLOOR TECH 07/04/2024 1:27 PM ENVIRONMENTAL SERVICES FLOOR TECH us Yuval Guerrero MD LAB POCT ORDERABLES - DE VICE Final Result [facility] [address] [facility] [place] [address] * FL Fluoroscopy < 1 Hour (07/04/2024 12:43 PM ENVIRONMENTAL SERVICES FLOOR TECH) Narrative [facility] - 07/04/2024 12:45 PM ENVIRONMENTAL SERVICES FLOOR TECH The images from this study are not interpreted by Radiology. Please refer to the physician's procedure / OR operative note. us Yuval Guerrero MD IMG FLUOROSCOPY PROCEDUR ES Final Result [facility] * DE AN ELECTIVE ENDOTRACHEAL AIRWAY, DE AN PROCEDURE PLACEHOLDER (07/04/2024 12:16 PM ENVIRONMENTAL SERVICES FLOOR TECH) Narrative Erum Hilario CRNA - 07/04/2024 12:16 PM ENVIRONMENTAL SERVICES FLOOR TECH Erum Hilario CRNA 07/04/2024 12:19 PM Airway Patient location: OR Urgency: elective Indications for airway management: anesthesia Difficult airway: no Staff: Supervising provider: Daren Beasley MD Placed by: SPEEDER MACHINE OPERATOR: Erum Hilario CRNA Emergent airway documentation: Risks and benefits discussed: yes Consent obtained: yes Consent given by: patient Airway prep: Preoxygenated: yes Mask difficulty assessment: 1 - vent by mask Spontaneous ventilation during airway: absent Sedation level during airway: deep Final airway details: Final airway type: endotracheal airway Tube type: ETT ETT size: 7.0 mm Cuffed: yes Technique used for successful ETT placement: video laryngoscopy Devices/Methods used in placement: stylet and cricoid pressure Insertion site: oral Blade type: Ailyn Video blade type: Glidescope Blade size: 3 Cormack-Lehane (direct): grade I - full view of glottis Cormack-Lehane (video): grade I - full view of glottis Cuff volume: 3 mL Cuff inflated with: air ETT to teeth: 22 cm Placement verified by: auscultation and CO2 detection Airway secured with: paper tape Number of attempts: 2 Ventilation between attempts: BVM Unsuccessful airway(s) attempted: endotracheal tube Unsuccessful approach(es) for ETT: direct laryngoscopyno Additional comments: First attempt esophageal intubation, anterior larynx. Second attempt successful with glidescope. Dentition same as preop condition us Daren Beasley MD ANESTHESIA ORDERABLES Final R esult * DE AN PROCEDURE PLACEHOLDER (07/04/2024 11:07 AM ENVIRONMENTAL SERVICES FLOOR TECH) Narrative Daren eBasley MD - 07/04/2024 11:07 AM ENVIRONMENTAL SERVICES FLOOR TECH Daren Beasley MD 07/04/2024 1:01 PM Peripheral Block Patient location during procedure: pre-op holding Reason for block: post-op pain management per surgeon request Ultrasound image in chart or stored: yes Block type: single shot Laterality: left Block type: brachial - supraclavicular Staff: Placed by: Anesthesiologist: Daren Beasley MD Procedure prep: Preprocedure checklist: patient identified, procedure contraindications assessed, site marked, procedure consent, surgical consent, IV checked, risks, benefits and alternatives discussed, monitors and equipment checked and timeout performed Patient position: head of bed elevated and supine Procedure performed while patient: sedate with meaningful contact Monitoring: ECG, oximetry and blood pressure Supplemental O2: nasal cannula Prep solution: chlorhexidine/alcohol PPE: provider hat/mask, sterile gloves and sterile probe cover and gel Peripheral nerve block: Technique: ultrasound guided Needle type: insulated, short-bevel and echogenic Needle gauge: 22 G Needle length: 50 mm Injection assessment: injection made incrementally with constant monitoring, local visualized surrounding nerve on ultrasound, negative aspiration for heme, see flowsheet for medication details, no paresthesias noted and normal resistance to injection Assessment: Block success: full evaluation pending Events: patient tolerated procedure well with no complications us Darne Beasley MD ANESTHESIA ORDERABLES Edited Result - Final * POCT glucose (07/04/2024 9:29 AM ENVIRONMENTAL SERVICES FLOOR TECH) [facility] Signature Glucose, POC 114 70 - 199 mg/dL Comment:Testing performed by : [facility], [address] [place] [address]., [id number] Blood 07/04/2024 9:29 AM ENVIRONMENTAL SERVICES FLOOR TECH 07/04/2024 9:29 AM ENVIRONMENTAL SERVICES FLOOR TECH us Yuval Guerrero MD LAB POCT ORDERABLES - DE VICE Final Result [facility] [address] [facility] [place] [address] * POCUS INJ BRACHIAL PLEXUS (07/04/2024 9:27 AM ENVIRONMENTAL SERVICES FLOOR TECH) Narrative [facility] - 07/04/2024 9:27 AM ENVIRONMENTAL SERVICES FLOOR TECH This procedure was performed and interpreted by the provider. Please refer to the provider's procedure/OR operative note for results. us Daren Beasley MD POCUS ORDERABLES Final Result Performing Organization Address City/[facility]/ZIP Co de Phone Number [facility] * eGFR (06/28/2024 1:12 PM ENVIRONMENTAL SERVICES FLOOR TECH) eGFR 85 >=60 mL/min/1. 73 m2 Comment: Interpretive Data Reference Interval Normal >/= 90 mL/min/1.73m2 Mildly decreased* 60 - 89 mL/min/1.73m2 Mildly to moderately decreased 45 - 59 mL/min/1.73m2 Moderately to severely decreased 30 - 44 mL/min/1.73m2 Severely decreased 15 - 29 mL/min/1.73m2 Kidney Failure < 15 mL/min/1.73m2 *Relative to young adult level Estimated glomerular filtration rate is determined by the 2020 CKD-EPI equation recommended by the National Kidney Foundation (A Unifying Approach to GFR Estimation: Recommendations of the NKF-ASK Task Force on Reassessing the Inclusion of Race in Diagnosing Kidney Disease, JASN 2020). The CKD-EPI equation should not be used for patients with unstable renal function and has not been validated in children and those over 70. Current interpretive data was last reviewed 2021. Testing performed by: [facility], [address] [place] [address]., [address] Blood 06/28/2024 1:12 PM ENVIRONMENTAL SERVICES FLOOR TECH 06/28/2024 1:16 PM ENVIRONMENTAL SERVICES FLOOR TECH us Deangelo Mata MD LAB BLOOD ORDERABLES Final Resul t [facility] [address] [facility] [place] [address] * Hemoglobin A1c (06/28/2024 1:12 PM ENVIRONMENTAL SERVICES FLOOR TECH) Hgb A1C 5.5 4.0 - 5.6 % Comment:Testing performed by : [address] [address] Estimated Average Glucose 111 mg/dL [facility] TAFOYA Comment: The ADA recommends reporting an estimated Average Glucose (eAG) with all Hemoglobin A1c results using the equation derived from a study of 507 normal and diabetic adults. Minority populations were underrepresented and children were not included. (Diabetes Care 31:0360-6304, 2008). The eAG is not equivalent to a fasting glucose. Testing performed by: [address] [address] Blood 06/28/2024 1:12 PM ENVIRONMENTAL SERVICES FLOOR TECH 06/28/2024 1:16 PM ENVIRONMENTAL SERVICES FLOOR TECH Narrative [facility] - 06/28/2024 1:31 PM ENVIRONMENTAL SERVICES FLOOR TECH PRE SURGICAL TESTING ONLY--07/04/2024--Surgeons and Role: * Yuval Guerrero MD - Primary-@ANPROCEDURE@ Deangelo Mata MD LAB BLOOD ORDERABLES Final Resul t [facility] [place] [address] * (ABNORMAL) Basic metabolic panel (06/28/2024 1:12 PM ENVIRONMENTAL SERVICES FLOOR TECH) Sodium 138 135 - 145 mmol/L Comment:Testing performed by : [address] [address] Potassium, pl 3.8 3.3 - 4.9 mmol/L [facility] TAFOYA Comment:Testing performed by : [address] [address] Chloride 100 97 - 110 mmol/L [facility] Comment:Testing performed by : [address] [address] CO2 25 22 - 32 mmol/L [facility] Comment:Testing performed by : [address] [address] Anion gap 13 2 - 15 mmol/L [facility] TAFOYA Comment:Testing performed by : [address] [address] BUN 19 6 - 25 mg/dL [facility] TAFOYA Comment:Testing performed by : [address] [address] Creatinine 0.76 0.60 - 1.10 mg/dL [facility] Comment:Testing performed by : [address] [address] Glucose 98 70 - 199 mg/dL [facility] Comment: Interpretive Data Fasting glucose >/= 126 mg/dl is diagnostic for diabetes. Fasting is defined as no caloric intake for at least 8 hours. Fasting glucose between 100 mg/dl to 125 mg/dl is diagnostic of prediabetes. In a patient with classic symptoms of hyperglycemia or hyperglycemic crisis, a random glucose >/= 200 mg/dl is diagnostic for diabetes. In the absence of unequivocal hyperglycemia, results should be confirmed by repeat testing. The classification and Diagnosis of Diabetes Diabetes Care 2021; 46: S19-S40. Current interpretive data was last revised 2022. Testing performed by: [address] [address] Calcium 12.1(H) 8.5 - 10.3 mg/dL [facility] Comment:Testing performed by : [address] [address] Blood 06/28/2024 1:12 PM ENVIRONMENTAL SERVICES FLOOR TECH 06/28/2024 1:16 PM ENVIRONMENTAL SERVICES FLOOR TECH Narrative [facility] - 06/28/2024 1:49 PM ENVIRONMENTAL SERVICES FLOOR TECH PRE SURGICAL TESTING ONLY--07/04/2024-LEFT WRIST OPEN REDUCTION INTERNAL FIXATION: -Surgeons and Role: * Yuval Guerrero MD - Primary- Deangelo Mata MD LAB BLOOD ORDERABLES Final Resul t [facility] [address] [facility] [facility] [place] [address] * ECG 12 lead (06/28/2024 1:02 PM ENVIRONMENTAL SERVICES FLOOR TECH) Ventricular Rate EKG/Min 87 BPM [facility] Atrial Rate 87 BPM [facility] DE-Interval (MSEC) 130 ms [facility] QRS-Interval (MSEC) 88 ms [facility] QT-Interval (MSEC) 368 ms [facility] QTc 442 ms [facility] P [place] 34 degrees [facility] R [place] 17 degrees [facility] T [place] 72 degrees [facility] Diagnosis Normal sinus rhythm ST-changes No previous ECGs available Confirmed by SULTAN LOPEZ M.D. ([id number]) on 06/28/2024 4:59:47 PM [facility] 06/28/2024 1:02 PM ENVIRONMENTAL SERVICES FLOOR TECH 06/28/2024 4:59 PM ENVIRONMENTAL SERVICES FLOOR TECH us Deangelo Mata MD ECG ORDERABLES Final Result [facility] * XR Wrist Left 3 or More Views (06/26/2024 8:01 AM ENVIRONMENTAL SERVICES FLOOR TECH) Anatomical Region Laterality Modality Upper Extremities, Wrist Left Compute d Radiography Narrative 06/27/2024 7:29 AM ENVIRONMENTAL SERVICES FLOOR TECH AP lateral and oblique x-rays of the left wrist on the mini C-arm show a distal ulna fracture as well as a comminuted displaced and shortened distal radius fracture Yuval Guerrero MD IMG XR PROCEDURES Final Result from Last 3 Months Insurance AETNA MEDICARE GOLD Care Teams Collections Technician Relationship Specialty Start Date End Date Davy Walters MD [address] [place] [id number] PCP - General Family Medicine 06/22/24
--- OUTSIDE RECORDS SUMMARY | 2024-09-15 14:18 | XMS_ITS | Referral Summary ---
Author Organization [facility] Address [facility] [place] [address] Care Team Providers Care Door Closer Mechanic Name Role Phone Davy Walters MD Primary Care Provider Encounters Date Type Department Care Team Description 09/15/2024 Orders Only [facility] Hand Surgery [address] [place] [phone] Yuval Guerrero MD Closed Colles' fracture of left radius with delayed healing, subsequent encounter (Primary Dx) 09/14/2024 Telephone [facility] Hand Surgery [address] [place] [phone] Yuval Guerrero MD OT order 09/13/2024 8:35 AM CDT Ancillary Procedure [facility] Hand Surgery [address] [place] [phone] Arrived 09/13/2024 8:45 AM CDT Office Visit [facility] Hand Surgery [address] [place] [phone] Yuval Guerrero MD Closed Colles' fracture of left radius with delayed healing, subsequent encounter (Primary Dx) 08/07/2024 11:30 AM CDT Ancillary Procedure [facility] Hand Surgery [address] [place] [phone] 08/07/2024 11:15 AM CDT Office Visit [facility] Hand Surgery [address] [place] [address] [place] [phone] Yuval Guerrero MD Closed Colles' fracture of left radius with delayed healing, subsequent encounter (Primary Dx) 07/17/2024 8:00 AM INTERNATIONAL STUDENT ADVISOR Ancillary Procedure [facility] Hand Surgery [address] [place] [address] [place] [phone] 07/17/2024 8:30 AM INTERNATIONAL STUDENT ADVISOR Office Visit [facility] Hand Surgery [address] [place] [address] [place] [phone] Yuval Guerrero MD Closed Colles' fracture of left radius with delayed healing, subsequent encounter (Primary Dx) 07/07/2024 9:15 AM INTERNATIONAL STUDENT ADVISOR Office Visit [facility] Hand Surgery [address] [place] [phone] Rozina Hauser NP Closed Colles' fracture of left radius with delayed healing, subsequent encounter (Primary Dx) 07/04/2024 9:30 AM INTERNATIONAL STUDENT ADVISOR Ancillary Procedure [facility] [place] [address] [place] [phone] 07/04/2024 11:30 AM INTERNATIONAL STUDENT ADVISOR - 07/04/2024 1:00 PM INTERNATIONAL STUDENT ADVISOR Surgery [facility] [place] [address] [place] [phone] Yuval Guerrero MD LEFT WRIST OPEN REDUCTION INTERNAL FIXATION 07/04/2024 11:53 AM INTERNATIONAL STUDENT ADVISOR Anesthesia Event [facility] [place] [address] [place] [phone] Daren Beasley MD Lee, Walter, MD 07/04/2024 8:49 AM INTERNATIONAL STUDENT ADVISOR - 07/04/2024 3:17 PM INTERNATIONAL STUDENT ADVISOR Hospital Encounter [facility] [place] [address] [place] [phone] Yuval Guerrero MD Closed Colles' fracture of left radius with delayed healing, subsequent encounter [S52.532G] (Primary Dx); Closed fracture of distal end of ulna (alone) [S52.609A] Discharge Disposition: Discharge to home or self care 06/28/2024 1:00 PM INTERNATIONAL STUDENT ADVISOR Pre-Admission Testing 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) 06/26/2024 7:55 AM INTERNATIONAL STUDENT ADVISOR - 06/26/2024 11:59 PM INTERNATIONAL STUDENT ADVISOR Hospital Encounter [facility] Di[facility] Imaging [facility] [place] [address] Closed fracture of left wrist, initial encounter Discharge Disposition: Discharge to home or self care 06/26/2024 8:15 AM INTERNATIONAL STUDENT ADVISOR Office Visit [facility] Hand Surgery [address] [place] [address] [address] [place] [phone] Yuval Guerrero MD Closed fracture of left wrist, initial encounter (Primary Dx); Closed comminuted intra-articular fracture of distal end of femur, unspecified laterality, initial encounter (HCC); Other closed intra-articular fracture of distal end of left radius, initial encounter; Closed fracture of distal end of ulna (alone) from Last 3 Months Allergies No known active allergies Medications amLODIPine (NORVASC) 5 mg tablet Take 1 tablet (5 mg total) by mouth nightly 05/18/2024 Active Cliftonuch Ultra Test strip USE TO TEST IN [...] ulna (alone) Fracture, Colles, left, closed 06/26/2024 Social History Tobacco Use Types Packs/Day Years [...] on file Legal Sex Female 6:15 PM INTERNATIONAL STUDENT ADVISOR Gender Identity Not on file Sexual Orientation Not on file Last Filed Vital Signs Vital Sign Reading Time Taken Comments Blood Pressure 137/71 07/04/2024 2:30 PM INTERNATIONAL STUDENT ADVISOR Pulse 88 07/04/2024 2:30 PM INTERNATIONAL STUDENT ADVISOR Temperature 36.5 C (97.7 F) 07/04/2024 1:35 PM INTERNATIONAL STUDENT ADVISOR Respiratory Rate 18 07/04/2024 1:50 PM INTERNATIONAL STUDENT ADVISOR Oxygen Saturation 92% 07/04/2024 2:30 PM INTERNATIONAL STUDENT ADVISOR Inhaled Oxygen Concentration - - Weight 77.1 kg (170 lb) 07/04/2024 8:57 AM INTERNATIONAL STUDENT ADVISOR Height 162.6 cm (5' 4 ) 07/04/2024 8:57 AM INTERNATIONAL STUDENT ADVISOR Body Mass Index 29.18 07/04/2024 8:57 AM INTERNATIONAL STUDENT ADVISOR Plan of Treatment Not on file Medical Devices Implanted Type Area Purification Director Device Identifier Shelf Expiration Date Model / Serial / Lot [employer] Plate Bone Narrow 4 Hole Left Ti [id number] - [id number] Implanted:Qty: 1 on 07/04/2024 by Yuval Guerrero MD at [facility] Plate Left: Wrist [employer] AR-[id number] -04 / / [employer] Low Profile Screws 3.5mm 14mm Self Drill Solid Midfoot Cortical T Ar-8935-14 - [id number] Implanted:Qty: 1 on 07/04/2024 by Yuval Guerrero MD at [facility] Screw Left: Wrist [employer] AR-8935-14 / / [employer] Screw Kreulock Compression Titanium 3.5x14mm [id number] - [id number] Implanted:Qty: 1 on 07/04/2024 by Yuval Guerrero MD at [facility] Screw Left: Wrist [employer] AR-8935CL- 12 / / [employer] Screw Kreulock Compression Titanium 3.5x14mm [id number] - [id number] Implanted:Qty: 1 on 07/04/2024 by Yuval Guerrero MD at [facility] Screw Left: Wrist [employer] AR-8935CL- 12 / / [employer] Screw Kreulock Compression Titanium 2.4x18mm [id number] - [id number] Implanted:Qty: 1 on 07/04/2024 by Yuval Guerrero MD at [facility] Left: Wrist [employer] AR-8724VCL -18 / / [employer] Screw Kreulock Compression Titanium 2.4x20mm [id number] - [id number] Implanted:Qty: 1 on 07/04/2024 by Yuval Guerrero MD at [facility] Left: Wrist [employer] AR-8724VCL -20 / / [employer] Screw Kreulock Compression Titanium 2.4x20mm [id number] - [id number] Implanted:Qty: 1 on 07/04/2024 by Yuval Guerrero MD at [facility] Left: Wrist [employer] AR-8724VCL -20 / / [employer] Low Profile Screws 2.4mm 24mm Self Drill Self Tap Cannulated Ar-8724-24 - [id number] Implanted:Qty: 1 on 07/04/2024 by Yuval Guerrero MD at [facility] Left: Wrist [employer] AR-8724-24 / [...] Read Routine (OP Routine) 07/17/2024 9:25 AM INTERNATIONAL STUDENT ADVISOR Closed Colles' fracture of left radius with delayed healing, subsequent encounter CAST APPLICATION Routine 07/07/2024 10:4 6 AM INTERNATIONAL STUDENT ADVISOR Closed Colles' fracture of left radius with delayed healing, subsequent encounter POCT GLUCOSE DEVICE Routine 07/04/2024 1 :27 PM INTERNATIONAL STUDENT ADVISOR FL FLUOROSCOPY < 1 HOUR IP Routine 07/04/2024 12:43 PM INTERNATIONAL STUDENT ADVISOR RI AN PROCEDURE PLACEHOLDER Routine 07/04/2024 12:16 PM INTERNATIONAL STUDENT ADVISOR RI AN ELECTIVE ENDOTRACHEAL AIRWAY Routine 07/04/2024 12:16 PM INTERNATIONAL STUDENT ADVISOR OPEN REDUCTION INTERNAL FIXATION - WRIST 07/04/2024 11:58 AM INTERNATIONAL STUDENT ADVISOR Closed Colles' fracture of left radius, initial encounter Case Notes LT WRIST ORIF ~ TLB ADVISE WHAT COMPANY TO USE. 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) BASIC METABOLIC PANEL Routine 06/28/2024 1:12 PM INTERNATIONAL STUDENT ADVISOR Pre-op testing ECG 12-LEAD Routine 06/28/2024 1:02 PM INTERNATIONAL STUDENT ADVISOR Pre-op testing XR WRIST LEFT 3 OR MORE VIEWS Schedule Routine, Read Routine (OP Routine) 06/26/2024 8:01 AM INTERNATIONAL STUDENT ADVISOR Closed fracture of left wrist, initial encounter from Last 3 Months Results * XR Wrist Left 3 or More Views (09/14/2024 6:34 AM CDT) Anatomical Region Laterality Modality Upper Extremities, Wrist Left Compute d Radiography Narrative 09/14/2024 6:34 AM CDT X-rays on the mini C arm, AP lateral and oblique, showed postoperative changes across a well-healed distal radius fracture. us Yuval Guerrero MD IMG XR PROCEDURES Final [...] 3 or More Views (07/17/2024 9:25 AM INTERNATIONAL STUDENT ADVISOR) Anatomical Region Laterality Modality Upper Extremities, Wrist Left Compute d Radiography Narrative 07/17/2024 9:25 AM INTERNATIONAL STUDENT ADVISOR AP lateral and oblique x-rays of the left wrist on the mini C-arm show postop changes across a healing distal radius fracture Yuval Guerrero MD IMG XR PROCEDURES Final Result * Cast application (07/07/2024 10:46 AM INTERNATIONAL STUDENT ADVISOR) Narrative Rozina Hauser NP - 07/07/2024 10:46 AM INTERNATIONAL STUDENT ADVISOR Rozina Hauser NP 07/07/2024 10:50 AM Cast [...] well with no immediate complications Rozina Hauser TRANSFER STATION OPERATOR IN CLINIC/BEDSIDE ORDERABLES Fi nal Result * POCT glucose (07/04/2024 1:27 PM INTERNATIONAL STUDENT ADVISOR) Glucose, POC 105 70 - 199 mg/dL Comment:Testing performed by : [facility], [address] [place] [address]., [id number] Glucose comment 1 Use This Result CHAPIS TAFOYA Comment:Testing performed by : [facility], [address] [place] [address]., [address] Blood 07/04/2024 1:27 PM INTERNATIONAL STUDENT ADVISOR 07/04/2024 1:27 PM INTERNATIONAL STUDENT ADVISOR Yuval Guerrero MD LAB POCT ORDERABLES - DE VICE Final Result Performing Organization Address [facility] Co de Phone Number [facility] Department [place] [address] * FL Fluoroscopy < 1 Hour (07/04/2024 12:43 PM INTERNATIONAL STUDENT ADVISOR) Narrative SIRIA_CAN_MHB_MHE - 07/04/2024 12:45 PM INTERNATIONAL STUDENT ADVISOR The images from this study are not interpreted by Radiology. Please refer to the physician's procedure / OR operative note. Yuval Guerrero MD IMG FLUOROSCOPY PROCEDUR ES Final Result Performing Organization Address [facility] Co nv Phone Number RAD_CLARIO_MHB_MHE * RI AN ELECTIVE ENDOTRACHEAL AIRWAY, RI AN PROCEDURE PLACEHOLDER (07/04/2024 12:16 PM INTERNATIONAL STUDENT ADVISOR) Narrative Erum Hilario CRNA - 07/04/2024 12:16 PM INTERNATIONAL STUDENT ADVISOR Erum Hilario CRNA 07/04/2024 12:19 PM Airway Patient location: OR Urgency: elective Indications for airway management: anesthesia Difficult airway: no Staff: Supervising provider: Daren Beasley MD Placed by: MOLDER FOAM RUBBER: Erum Hilario CRNA Emergent airway documentation: Risks [...] MD ANESTHESIA ORDERABLES Final R esult * RI AN PROCEDURE PLACEHOLDER (07/04/2024 11:07 AM INTERNATIONAL STUDENT ADVISOR) Narrative Daren Beasley MD - 07/04/2024 11:07 AM INTERNATIONAL STUDENT ADVISOR Daren Beasley MD 07/04/2024 1:01 PM Peripheral [...] tolerated procedure well with no complications us Daren Beasley MD ANESTHESIA ORDERABLES Edited Result - Final * POCT glucose (07/04/2024 9:29 AM INTERNATIONAL STUDENT ADVISOR) Pathologist [facility] Glucose, POC 114 70 - 199 mg/dL Comment:Testing performed by : [facility], [address] [place] [address], [place]., [address] Blood 07/04/2024 9:29 AM INTERNATIONAL STUDENT ADVISOR 07/04/2024 9:29 AM INTERNATIONAL STUDENT ADVISOR us Yuval Guerrero MD LAB POCT ORDERABLES - DE VICE Final Result CH[facility] [address] [facility] Department [place] [address] * POCUS INJ BRACHIAL PLEXUS (07/04/2024 9:27 AM INTERNATIONAL STUDENT ADVISOR) Narrative RAD_PACS_POCUS_[facility] - 07/04/2024 9:27 AM INTERNATIONAL STUDENT ADVISOR This procedure was performed and interpreted by the provider. Please refer to the provider's procedure/OR operative note for results. us Daren Beasley MD POCUS ORDERABLES Final Result Performing Organization Address City/[facility]/ZIP Co de Phone Number RAD_PACS_POCUS_[facility] * eGFR (06/28/2024 1:12 PM INTERNATIONAL STUDENT ADVISOR) Pathologist [facility] eGFR 85 >=60 mL/min/1. 73 m2 Comment: [...] was last reviewed 2021. Testing performed by: [address] [address] Blood 06/28/2024 1:12 PM INTERNATIONAL STUDENT ADVISOR 06/28/2024 1:16 PM INTERNATIONAL STUDENT ADVISOR Deangelo Mata MD LAB BLOOD ORDERABLES Final Resul t Performing Organization Address City/[facility] Co de Phone Number CHAPIS [address] [place] [address] * Hemoglobin A1c (06/28/2024 1:12 PM INTERNATIONAL STUDENT ADVISOR) Hgb A1C 5.5 4.0 - 5.6 % Comment:Testing performed by : [address] [address] Estimated Average Glucose 111 mg/dL CHAPIS Comment: The ADA recommends reporting an estimated Average Glucose (eAG) with all Hemoglobin A1c results using the equation derived from a study of 507 normal and diabetic adults. Minority populations were underrepresented and children were not included. (Diabetes Care 31:0214-0176, 2008). The eAG is not equivalent to a fasting glucose. Testing performed by: [address] [address] Blood 06/28/2024 1:12 PM INTERNATIONAL STUDENT ADVISOR 06/28/2024 1:16 PM INTERNATIONAL STUDENT ADVISOR Narrative [facility] - 06/28/2024 1:31 PM INTERNATIONAL STUDENT ADVISOR PRE SURGICAL TESTING ONLY--07/04/2024--Surgeons and Role: * Yuval Guerrero MD - Primary-@ANPROCEDURE@ us Deangelo Mata MD LAB BLOOD ORDERABLES Final Resul t Performing Organization Address City/[facility] Co de Phone Number [facility] [address] [facility] [place] [address] * (ABNORMAL) Basic metabolic panel (06/28/2024 1:12 PM INTERNATIONAL STUDENT ADVISOR) Sodium 138 135 - 145 mmol/L Comment:Testing performed by : [address] [address] Potassium, pl 3.8 3.3 - 4.9 mmol/L [facility] Comment:Testing performed by : [address] [address] Chloride 100 97 - 110 mmol/L [facility] Comment:Testing performed by : [address], [place]., [address] CO2 25 22 - 32 mmol/L [facility] Comment:Testing performed by : [address], [place]., [address] Anion gap 13 2 - 15 mmol/L [facility] Comment:Testing performed by : [address], [place]., [address] BUN 19 6 - 25 mg/dL [facility] Comment:Testing performed by : [address], [place]., [address] Creatinine 0.76 0.60 - 1.10 mg/dL [facility] Comment:Testing performed by : [address] [address] Glucose 98 70 - 199 mg/dL CHAPIS [...] classification and Diagnosis of Diabetes Diabetes Care 202; 46: S19-S40. Current interpretive data was last revised 2022. Testing performed by: [address] [address] Calcium 12.1(H) 8.5 - 10.3 mg/dL [facility] Comment:Testing performed by : [address] [address] Blood 06/28/2024 1:12 PM INTERNATIONAL STUDENT ADVISOR 06/28/2024 1:16 PM INTERNATIONAL STUDENT ADVISOR Narrative [facility] - 06/28/2024 1:49 PM INTERNATIONAL STUDENT ADVISOR PRE SURGICAL TESTING ONLY--07/04/2024-LEFT WRIST OPEN REDUCTION INTERNAL FIXATION: -Surgeons and Role: * Yuval Guerrero MD - Primary- Deangelo Mata MD LAB BLOOD ORDERABLES Final Resul t Performing Organization Address [facility] de Phone Number [facility]IS [address] [facility] Department [place] [address] * ECG 12 lead (06/28/2024 1:02 PM INTERNATIONAL STUDENT ADVISOR) Pathologist [facility] Ventricular Rate EKG/Min 87 BPM [facility] Atrial Rate 87 BPM [facility] RI-Interval (MSEC) 130 ms [facility] QRS-Interval (MSEC) 88 ms [facility] QT-Interval (MSEC) 368 ms [facility] QTc 442 ms [facility] P [place] 34 degrees [facility] R [place] 17 degrees [facility] T [place] 72 degrees [facility] Diagnosis Normal sinus rhythm ST-changes No previous ECGs available Confirmed by SULTAN LOPEZ M.D. ([id number]) on 06/28/2024 4:59:47 PM [facility] 06/28/2024 1:02 PM INTERNATIONAL STUDENT ADVISOR 06/28/2024 4:59 PM INTERNATIONAL STUDENT ADVISOR Deangelo Mata MD ECG ORDERABLES Final Result Performing Organization Address [facility] Phone Number [facility] * XR Wrist Left 3 or More Views (06/26/2024 8:01 AM INTERNATIONAL STUDENT ADVISOR) Anatomical Region Laterality Modality Upper Extremities, Wrist Left Compute d Radiography Narrative 06/27/2024 7:29 AM INTERNATIONAL STUDENT ADVISOR AP lateral and oblique x-rays of the left wrist on the mini C-arm show a distal ulna fracture as well as a comminuted displaced and shortened distal radius fracture Yuval Guerrero MD IMG XR PROCEDURES Final Result from Last 3 Months Insurance [employer] MEDICARE GOLD Care Teams Door Closer Mechanic Relationship Specialty Start Date End Date Davy Walters MD [address] [facility] [address] [place] [address] PCP - General Family Medicine 06/22/24
--- OUTSIDE RECORDS SUMMARY | 2024-09-15 14:18 | XMS_ITS | Encounter Summary ---
Author Organization [facility] Healthcare Address [address] [place] [address] Care Team Providers Care Cement Sprayer Helper Name Role Phone Davy Walters MD Primary Care Provider Reason for Referral * Consultation (Routine) - Pending Review Specialty Diagnoses / Procedures Referred By Adrian donato Referred To Contact Occupational Therapy Diagnoses Closed Colles' fracture of left radius with delayed healing, subsequent encounter Yuval Guerrero MD [facility]0 [address] [address] Phone: tel: fax: [facility] [address] [place] [phone] Phone: tel: fax: Referral ID Status Reason Start Date Expiration Date Visits Requested Visits Authorized [id number] Pending Review Specialty Services Required 09/15/2024 10/15/2025 24 24 Question Answer PTRFR OT Evaluate and Treat Therapy options discussed with patient? Yes Location provided for therapy services is: Patient requested/Patient preferred Please select the performing region: External Order [171] To loc/pos [facility] [[id number]] # of visits: 24 Comments Eval & treat 2-3 x's wk x 4 wks Active ROM & strengthenin Encounter Details Date Type Department Care Team (Late st Contact Info) Description 09/15/2024 Orders Only [facility] Hand Surgery [address] [facility] [address] [place] [phone] Yuval Guerrero MD [facility] [facility] [address] [place] [address] Closed Colles' fracture of left radius with delayed healing, subsequent encounter (Primary Dx) Social History Tobacco Use Types Packs/Day Years [...] on file Legal Sex Female 6:15 PM 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 Gender Identity Not on file Sexual Orientation Not on file documented as of this encounter Plan of Treatment Scheduled Referrals Name Type Priority Associated Diagnoses Order Schedule Ambulatory referral order to Occupational Therapy - Outpatient Referral Routine Closed Colles' fracture of left radius with delayed healing, subsequent encounter Expected: 09/29/2024 (Approximate), Expires: 09/15/2025 documented as of this encounter Visit Diagnoses Diagnosis Closed Colles' fracture of left radius with delayed healing, subsequent encounter- Primary documented in this encounter Care Teams Cement Sprayer Helper Relationship Specialty Start Date End Date Davy Walters MD [address] [facility] [address] [place] [address] PCP - General Family Medicine 06/22/24 documented as of this encounter
--- OUTSIDE RECORDS SUMMARY | 2024-09-15 14:18 | XMS_ITS | Clinical Summary ---
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 Gender Identity Not on file Sexual Orientation Not on file Plan of Treatment Health Maintenance Due Date Last Done Comments DEXA Bone Density 1955 Hepatitis C Virus (HCV) Screening 1955 TdaP Immunization 1955 Colonoscopy 08/27/2000 Colorectal Cancer Screening 08/27/2000 Cologuard 08/27/2005 Immunochemical Fecal Occult Blood 08/27/2005 Mammogram 08/27/2005 Pneumococcal Immunization (5 0+ years) (1 of 1 - PCV) 08/27/2005 Zoster Immunization (1 of 2) 08/27/2005 Influenza Immunization (#1) 2024 05/31/2020 SARS-COV-2 Immunization ( - season) 2024 04/11/2021, 08/12/2020, 07/22/2020 Respiratory Syncytial Virus (RSV) Immunization (Adult) (1 - 1-dose 75+ series) 08/27/2030 Hepatitis B Immunization Aged Out No longer eligible based on patient's age to complete this topic Meningococcal Immunization (ACWY) Aged Out No longer eligible b ased on patient's age to complete this topic Rotavirus Immunization Aged Out No lo nger eligible based on patient's age to complete this topic
--- OUTSIDE RECORDS SUMMARY | 2024-09-15 14:18 | XMS_ITS | CONTINUITY OF CARE DOCUMENT ---
Author Name lauryn combs Address Unknown Organization [facility] Address [address] [place] [address] Phone [phone] Care Team Providers Care Hollow Handle Bench Worker Name Role Phone Felice GARCIA, Nereida Unavailable INSURANCE PROVIDERS Payer name Policy type / Coverage type Calder red constitution party ID [facility] Blue [facility] [id number] [facility] Other [id number]
== END 2024-09-15 14:16 | disposition home or self-care (01) ==
LOC: ANHIMG 14:17
PROVIDERS: PCP Family Medicine; Visit Provider Family Medicine
DX: Z78.0 Asymptomatic menopausal state (principal); S62.102A Fracture of unspecified carpal bone, left wrist, initial encounter for closed fracture; M85.88 Other specified disorders of bone density and structure, other site; M85.852 Other specified disorders of bone density and structure, left thigh; M85.851 Other specified disorders of bone density and structure, right thigh; X58.XXXA Exposure to other specified factors, initial encounter
CPT/HCPCS: 77080

== ENCOUNTER 2024-09-22 11:56 | Outpatient (CLI) | payer MEDICARE, SELFPAY ==
--- NOTE | ~2024-09-22 | XR_ITS ---
PA, oblique, and lateral views of the right index finger CLINICAL HISTORY: Pain FINDINGS: There is advanced degenerative change of the DIP joint of the index finger. There is minima l degenerative change of the PIP joint. There is moderate to advanced degenerative change of the firs t CMC joint. No acute fracture or dislocation. Focal soft tissue prominence at dorsal a the DIP joint is could reflect [place] node. 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 Reviewed, dictated and finalized at location M.
== END 2024-09-22 11:57 | disposition home or self-care (01) ==
LOC: MICIMG 11:58
PROVIDERS: PCP Family Medicine; Visit Provider Family Medicine
DX: M25.50 Pain in unspecified joint (principal); M19.041 Primary osteoarthritis, right hand
CPT/HCPCS: 73140

== ENCOUNTER 2024-10-30 11:00 | Outpatient (RCR) | payer MEDICARE, SELFPAY ==
--- NOTE | 2024-09-22 11:56 | OTOPEVAL1 ---
Assessment and note entered by Max Rashid, GARY/Fausto, CHT OT Evaluation Information 09/22/24 Assessment Status Evaluation Diagnosis Closed Colles' fracture of left radius with delayed healing ICD-10 Condition Codes (OT) Pain in left wrist M25.532 Subjective Information Patient fractured her left wrist and underwent an ORIF on 07/04/24. She is right handed. She reports residual stiffness and weakness, which has caused difficulties with ADLs such as driving, bathing, cooking, and dishes. She likes to take baths and has been unable to due to being unable to push herself back up and weight bear through that wrist /hand. Reported Pain Level Pain Score 2: Self Report Assessment OT Clinical Summary Patient referred to OT 12 weeks post left wrist ORIF for a Colles' fracture. She presents with residual stiffness, weakness, and pain that limits return of functional use. Instructed in HEP for improved flexibility, scar mobilization, and second facing baster strengthening. Continued follow up indicated to progress HEP, use of modalities, and therapeutic exercise to facilitate improved ROM, strength, and return to use for ADLs. Plan of Care Interventions Therapeutic Exercise,Manual Therapy,Therapeutic Activities,Paraffin OT Services Indicated Yes Treatment Frequency and 1x/week for 6 visits Duration These treatments will address the objective and functional deficits as defined above. The patient will be advanced safely and appropriately in order for the patient to progress towards his/her prior level of function. Additional exercises will be introduced and as well as a comprehensive home exercise program upon discharge, if needed, ?to ensure carryover of functional gains achieved in the clinic. This treatment plan has been reviewed and agreement upon by the patient.
--- NOTE | 2024-09-22 11:56 | OPREHPOC ---
Outpatient Therapy Plan of Care This is a Multidisciplinary Plan of Care that may contain components documented by all disciplines (PT, OT, and ST.) OT Problem 1 OT Problem #1 Knowledge Deficit OT Goal 1 Goal / Goal Update Patient to be independent with instructed materials. Target Visit 6 OT Problem 2 OT Problem #2 Impaired Flexibility OT Goal 1 Goal / Goal Update 1. Patient to increase active wrist flexion to 55 deg. 2. Patient to increase active wrist extension to 55 deg. Target Visit 6 OT Problem 3 OT Problem #3 Impaired Strength OT Goal 1 Goal / Goal Update 1. Patient to progress to 2 lb strengthening for the wrist in all planes x20 reps with good form. 2. 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 Target Visit 6
--- NOTE | 2024-10-30 11:48 | OTOPDC ---
Assessment and note entered by Max Rashid, OTR/L, CHT OT D/C 10/30/24 Diagnosis Closed Colles' fracture of left radius with delayed healing ICD-10 Condition Codes (OT) Pain in left wrist M25.532 Subjective Information Patient reports progress with the left UE. She reports she has gotten back to driving, getting herself into her bathtub again, meal prep/cooking, and dishes. She reports continued difficulties with being able to open a jar or lift heavy items. Reported Pain Level Pain Score 1: Self Report Additional Pain Score Comments Patient has times of no pain. With light ADLs she reports the pain is about 1/10. Assessment OT Clinical Summary Patient has participated in 6 weeks of OT and she is now 18 weeks post left wrist ORIF for a Colles' fracture. She has made excellent progress with therapy. Her left wrist ROM improved to 55 degrees of flexion, 55 degrees of extension, 22 degrees of UD, and [address] She is strengthening with a 3 lb. free weight for the wrist. Her forearm ROM is WNL. Her finger ROM is WNL. Left iron caster strength improved from 23 to 33 lbs. She is back to using her left hand for ADLs and progressively using the hand with less pain. Reviewed HEP and she is independent with all materials. D/C OT. OT Services Indicated No
--- NOTE | 2024-10-30 11:48 | OPREHPOC ---
Outpatient Therapy Plan of Care This is a Multidisciplinary Plan of Care that may contain components documented by all disciplines (PT, OT, and ST.) OT Problem 1 OT Problem #1 Knowledge Deficit OT Goal 1 Goal / Goal Update Patient to be independent with instructed materials. ---OT D/C 10/30/24--- Met Target Visit 6 OT Problem 2 OT Problem #2 Impaired Flexibility OT Goal 1 Goal / Goal Update 1. Patient to increase active wrist flexion to 55 deg. 2. Patient to increase active wrist extension to 55 deg. ---OT D/C 10/30/24--- 1. Met 2. Met Target Visit 6 OT Problem 3 OT Problem #3 Impaired Strength OT Goal 1 Goal / Goal Update 1. Patient to progress to 2 lb strengthening for the wrist in all planes x20 reps with good form. 2. 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 ---OT D/C 10/30/24--- 1. Met 2. Progressed, but not met Target Visit 6
== END 2024-10-30 17:15 | disposition home or self-care (01) ==
LOC: ANHOT 11:00
PROVIDERS: PCP Family Medicine; Visit Provider Orthopaedic Surgery Hand Surgery
DX: S52.532G Colles' fracture of left radius, subsequent encounter for closed fracture with delayed healing (principal)
CPT/HCPCS: 97110; 97165